=== PATIENT | female | born 1975 | race Caucasian/White ===

== ENCOUNTER 2017-08-16 | Day surgery (SDC) | END 2017-08-16 23:20 | disposition home or self-care (01) ==

== ENCOUNTER → 2018-02-18 | Outpatient (CLI) | payer OTHER ==
[~2018-02-18] MED LIST: BIO CLEANSE; CYAN500 PO; IRON PO; Multiple Vitam1 EAC1 PO; PLEXUS SLIM; PROBIO 5; SYNTHROID25 MCG PO
== END | disposition home or self-care (01) ==
LOC: LAB SHORT 13:32 → PLD 13:32
DX: D22.4 Melanocytic nevi of scalp and neck (principal); D22.5 Melanocytic nevi of trunk
CPT/HCPCS: 88305

== ENCOUNTER → 2018-08-29 | Outpatient (CLI) | payer OTHER | END | disposition home or self-care (01) | LOC: LAB SHORT 13:28 → LAB EV 13:28 | DX: N39.0 Urinary tract infection, site not specified (principal) | CPT/HCPCS: 87077; 87086; 87186 ==

== ENCOUNTER → 2018-11-12 | Outpatient (CLI) | payer OTHER ==
[2018-11-12 13:22] LABS: Source, Urine Clean Catch
[2018-11-12 13:40] LABS: Squamous Epithelial Cells Few /hpf (Few); White Blood Cells, Urine 0-2 /hpf (0-5)
[2018-11-12 13:41] LABS: Bacteria Rare /hpf
== END | disposition home or self-care (01) ==
LOC: LAB EV 13:19 → LAB SHORT 13:19
PROVIDERS: Physician Assistant
DX: N94.6 Dysmenorrhea, unspecified (principal)
CPT/HCPCS: 81015